=== PATIENT | male | born 1985 | race Caucasian/White ===

== ENCOUNTER 2021-02-08 19:21 | Emergency (ER) | payer OTHER ==
[2021-02-08 19:35] VITALS: BP 147/92; PULSE 86; TEMP 98.1; BMI 30.1
== END 2021-02-08 20:54 | disposition home or self-care (01) ==
LOC: JERFT 19:21 → JER 19:21 → JERFT 20:54
DX: S61.210A Laceration without foreign body of right index finger without damage to nail, initial encounter (principal)
CPT/HCPCS: 99281-25